=== PATIENT | male | born 1955 | race Caucasian/White ===

== ENCOUNTER 2017-02-04 14:16 | Inpatient (IN) ==
[2017-02-04 14:40] LABS: MANUAL DIFF NEEDED? NO
--- NOTE | 2017-02-04 14:47 | PROVIDER DOCUMENTATION ---
HPI-General Adult - General Chief Complaint: Weakness Stated Complaint: weakness, jaundiced Time Seen by Provider: 02/04/17 14:21 Source: patient Allergies/Adverse Reactions: Patient Allergies Allergy/AdvReac Type Severity Reaction Status Date / Time No Known Allergies Allergy Verified 07/31/16 06:55 Home Medications: Home Medication List Medication Instructions Recorded Confirmed Last Taken Type Folic Acid 1 mg PO DAILY #30 tablet 01/17/15 07/31/16 02/28/15 Rx Omeprazole [Prilosec] 40 mg PO ACB #30 capsule 01/17/15 07/31/16 02/28/15 Rx Atenolol 50 mg PO DAILY 02/12/15 07/31/16 02/28/15 History Furosemide [Lasix] 20 mg PO DAILY #30 tablet 02/19/15 07/31/16 02/28/15 Rx Spironolactone [Aldactone] 25 mg PO DAILY #60 tablet 02/19/15 07/31/16 02/28/15 Rx Rifaximin [Xifaxan] 550 mg PO BID #60 tablet 03/07/15 07/31/16 02/28/15 Rx Indomethacin [Indocin] 25 mg PO TID PRN #30 capsule 07/31/16 Unknown Rx - History of Present Illness -Gen Adult Nature of Presenting Problems: patient is a 61 y/o m that presents with weakness and jaundice skin. unsure when it began. patient is an everyday drinker but hasn't had any in two weeks. Denies fever/chills. reports not eating or drinking in awhile. Location of Pain/Injury: reports: generalized Quality of Pain: reports: other (weakness) Severity: reports: severe Onset/Duration: reports: unsure Timing: reports: still present, getting worse Context/Activities at Onset: reports: none Modifying Factors: improves with: nothing Associated Symptoms: reports: fatigue, loss of appetite, malaise, weakness. denies: chest pain, constipation, diarrhea, dizziness, fever/chills, genitourinary problems, nausea, shortness of breath, vomiting Similar Symptoms Previously?: No Recently seen or treated by another doctor?: No Review of Systems - Adult - REVIEW OF SYSTEMS - ADULT Constitutional: reports: aide. denies: chills, fever Eyes: denies: decreased vision, blurred vision, double vision Ears, Nose, Mouth & Throat: denies: ear pain, sinus problem, throat pain, throat swelling Cardiovascular: denies: chest pain, palpitations, syncope Respiratory: denies: cough, shortness of breath, wheezing Gastrointestinal: reports: poor appetite. denies: abdominal pain, diarrhea, nausea, vomiting Genitourinary: denies: dysuria, frequency Musculoskeletal: reports: muscle weakness. denies: back pain Integumentary: reports: no symptoms reported Neurological: reports: no symptoms reported Psychiatric: reports: no symptoms reported Endocrine: reports: no symptoms reported Hematologic/Lymphatic: reports: no symptoms reported Allergic/Immunologic: reports: no symptoms reported All Other Systems: Reviewed and Negative Past History - Adult - PAST MEDICAL HISTORY-ADULT Review of Records: reports: Old Records Reviewed, Nursing Assessment Review, Medications Reviewed Cardiovascular: reports: HTN, hyperlipidemia Respiratory: reports: cancer (lung) Gastrointestinal: reports: liver disease (cirrhosis) Genitourinary: reports: other (cirrhosis) - PRIOR SURGERIES/PROCEDURES Surgical/Procedure History: reports: appendectomy, other (left lung) - IMMUNIZATION STATUS Childhood Immunizations: See Nurse Assessment Flu Vaccine: See Nurse Assessment - SOCIAL HISTORY Smoking: non-smoker Alcohol Use Frequency: every day (not in two weeks) Living Situation: family Physical Exam-General - PHYSICAL EXAM-ADULT Initial Vital Signs Reviewed: Yes - CONSTITUTIONAL General Appearance: alert, severe distress, other (ill appearing) - EYES Eyes: PERRL/EOMI, scleral icterus. negative: conjuctival exudate - HEAD, EARS, NOSE, MOUTH & THROAT HENMT: normocephalic/atraumatic, other (dry mucus membranes). negative: angioedema - NECK Neck: full range of motion, supple - RESPIRATORY Respiratory: lungs clear, normal breath sounds, no respiratory distress, no accessory muscle use - CARDIOVASCULAR Cardiovascular: no gallop, no murmur - GASTROINTESTINAL (ABDOMEN) Abdominal Exam: distended, mass (epigastric region), hepatomegaly. negative: spleenomegaly, psoas, Rovsing's sign - MUSCULOSKELETAL Extremity: no pedal edema, no calf tenderness - SKIN Integumentary: jaundice. negative: cyanosis, pallor - NEUROLOGIC Neurologic: shell plater II-XII nml as tested, no motor/sensory deficits - PSYCHIATRIC Psych/Mental Status: normal mood/affect, oriented x 3 Progress - PLAN OF CARE/RESULTS Progress/Plan/Lab Results: Vital Signs - 8 hr 02/04/17 14:17 Temperature 97 F L Pulse Rate 56 L Respiratory Rate 26 H Blood Pressure 80/53 O2 Sat by Pulse Oximetry 99 Orders Category Date Time Status Saline Loc DIRECTED Care 02/04/17 14:23 Active NPO Diet 02/04/17 14:23 Active AMMONIA [CHEM] Stat Lab 02/04/17 14:28 Received AMYLASE [CHEM] Stat Lab 02/04/17 14:28 Received CBC WITH ELECTRONIC DIFF [HEME] Stat Lab 02/04/17 14:28 Results COMPREHENSIVE METABOLIC PANEL [CHEM] Stat Lab 02/04/17 14:28 Received LIPASE [CHEM] Stat Lab 02/04/17 14:[address] W/POSS RFLX CULT [URINALYSIS] Stat Lab 02/04/17 14:23 Uncollected Laboratory Tests 02/04/17 02/04/17 02/04/17 14:28 14:28 14:28 WBC 13.26 H RBC 2.81 L Hgb 9.1 L Hct 26.2 L MCV 93.2 MCH 32.4 H MCHC 34.7 RDW Std Deviation 19.8 H Plt Count 73 L MPV Not Reportable Immature Gran % (Auto) 1.9 H Neut % (Auto) 77.5 H Lymph % (Auto) 8.9 L Posey % (Auto) 10.9 H Eos % (Auto) 0.2 Baso % (Auto) 0.6 Immature Gran # (Auto) 0.25 H Neut # (Auto) 10.28 H Lymph # (Auto) 1.18 L Posey # (Auto) 1.44 H Eos # (Auto) 0.03 Baso # (Auto) 0.08 Sodium 136 Potassium 5.2 H Chloride 93 L Carbon Dioxide 11 L Anion Gap 32 BUN 217 H Creatinine 15.7 H* Estimated GFR/1.73 m2 3 BUN/Creatinine Ratio 14 Glucose 153 H Calculated Osmolality 348 Calcium 7.4 L Total Bilirubin 32.70 H AST 161 H ALT 54 H Alkaline Phosphatase 195 H Ammonia 47 Total Protein 6.1 L Albumin 2.4 L Globulin 4.0 Albumin/Globulin Ratio 1.0 Amylase 91 Lipase 244 H Result Diagrams: 02/04/17 14:28 02/04/17 14:28 - CONSULTS/PCP/HOSPITALIST Notification #1 *Consult/PCP/Hospitalist*: ( strategy planning consultant for hospitalist) Time Discussed: 15:33 Reason/Comments: will transfer to [facility] Consult Disposition: other Departure - Departure Date of Disposition Decision: 02/04/17 Time of Disposition Decision: 15:34 DIAGNOSIS: Decreased oral intake, Anemia, Hepatorenal failure Hypotension Qualifiers: Hypotension type: unspecified hypotension type Qualified Code(s): I95.9 - Hypotension, unspecified Disposition: ADMITTED INPATIENT 09 Certified Medical Emergency: Emergent Condition: Poor Referrals and Follow-Ups: None,PCP [Primary Care Provider] - - Critical Care Note This patient required my direct & personal management of CC.: Yes Total Time (mins): 35 Critical Care Statement: This patient required my direct personal management to treat or rule out processes, the absence of which, could potentiallly result in sudden, clinically significant life or limb threatening deterioration.
[2017-02-04 14:49] LABS: BASO% 0.6 % (0.0-0.8); EOS# 0.03 X1000 (0.0-0.7); EOS% 0.2 % (0.0-10.0); HEMATOCRIT 26.2 % (42.0-52.0); HEMOGLOBIN 9.1 g/dL (14.0-18.0); IMM GRAN# 0.25 X1000 (0.0-0.04); IMM GRAN% 1.9 % (0.0-0.5); LYMPH# 1.18 X1000 (1.2-3.4); LYMPH% 8.9 % (20.5-51.1); MCH 32.4 PG (27-31); MCHC 34.7 g/dL (33-37); MCV 93.2 FL (81-99); MONO# 1.44 X1000 (0.11-0.59); MONO% 10.9 % (1.7-9.3); NEUT% 77.5 % (42.2-75.2); PLT 73 X1000 (130-400); RBC 2.81 XMIL (4.7-6.1)
[2017-02-04 15:24] LABS: BE -14.6 mmoll (-3.0-3.0); BLOOD TYPE ARTERIAL; DRAW SITE R RADIAL; METHB 1.1 % (0.0-1.5); O2(CT) 12.9 mL/dL (15.0-23.0); PO2(98.6) 101 mmHg (60-100); SAMPLE BLOOD; THB 9.3 g/dL (11.5-17.4); pH(98.6) 7.33 (7.35-7.45)
[2017-02-04 15:27] LABS: ALBUMIN 2.4 g/dL (3.5-5.0); CALCIUM 7.4 mg/dL (8.8-10.2); POTASSIUM 5.2 mmol/L (3.5-5.1); TOTAL BILIRUBIN 32.7 mg/dL (0.20-1.00); TOTAL PROTEIN 6.1 g/dL (6.3-8.3)
[2017-02-04] MEDS ORDERED: NS 1,000 ML IV ONE (15:37)
[2017-02-04 15:40] LABS: INR 1.99 (0.86-1.15); PROTIME 22.7 Seconds (12.1-15.5)
[2017-02-04 15:41] LABS: PTT PL 55.8 Seconds (22.6-43.9)
[2017-02-04 16:11] LABS: ALLEN TEST YES; MODALITY ROOM AIR; PCO2(98.6) 18 mmHg (35-45)
--- NOTE | 2017-02-04 16:42 | Diag Imaging Result Doc PS360 ---
ABDOMEN/PELVIS W/O CONTRAST - 02/04/2017 INDICATION: r/o mass TECHNIQUE: A CT dose reduction protocol was used. COMPARISON: Abdomen ultrasound 01/07/2015 FINDINGS: There is cirrhosis and splenomegaly. There is trace ascites. Alvarado catheter in the urinary bladder. No mass. There is obesity with laxity of the abdominal muscular wall. No radiodense renal stones. No hydronephrosis or hydroureter. The lung bases are clear and the heart size is normal. There are several bilateral nondisplaced rib fractures that appear subacute with some new bone formation. No acute bony lesions. IMPRESSION: Cirrhosis with splenomegaly. Trace ascites. Healing bilateral rib fractures. Electronically signed by Jimmy Kuo 02/04/2017 4:39 PM
[2017-02-04] MEDS ORDERED: ZOFRAN IV PRN (17:49)
[2017-02-04] MEDS ORDERED: VITAMIN K 10 MG in NS 50 ML IV ONE (17:56)
[2017-02-04 18:20] LABS: COLOR ORANGE; URINE CAST NONE SEEN /LPF; URINE CRYSTAL NONE SEEN /HPF; URINE EPITHELIAL CELLS >10 /HPF (<10); URINE SOURCE CATH; URINE WBC <10 /HPF (<10)
[2017-02-04] MEDS: SODIUM CHLORIDE 0.9% INJ SCH (18:20)
[2017-02-04] MEDS: PROTONIX IV SCH (18:20)
[2017-02-04] MEDS: NS 1,000 ML IV SCH (18:20)
--- NOTE | 2017-02-04 18:20 | HISTORY AND PHYSICAL ---
PRIMARY CARE PHYSICIAN: Dr. Nico Rodriguez. CHIEF COMPLAINT: Weakness and jaundice. HISTORY OF PRESENTING ILLNESS: This is a 61-year-old male who presented to [facility] ER with complaints of weakness and jaundiced skin. States that he is unsure of when it began. States that he is a daily alcohol drinker but has not had any alcohol in about 2 weeks. Reports that he has not been eating or drinking for the past several days. Workup in the ER showed a blood pressure on arrival of 80/53. Laboratory data showed a white blood cell count of 13.26. His ABG showed a pH of 7.33, pCO2 of 18, pCO2 of 101, bicarb 13.6, this is on room air. His potassium was 5.2, BUN of 217, creatinine 15.7, total bilirubin of 32.7, AST of 161, ALT of 54, alkaline phosphatase of 195, ammonia level was 47, amylase of 91, lipase 244, plasma lactate was 1.4. So he will be admitted to the intensive care unit at [facility]. It is noted that a CT of the abdomen has been obtained but we do not have those results at this time. PAST MEDICAL HISTORY: Hypertension, hyperlipidemia, lung cancer, cirrhosis, diabetes type 2, chronic ETOH abuse. 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 FAMILY HISTORY: Noncontributory. SOCIAL HISTORY: Currently lives with family. Denies any tobacco use stating he quit 17 years ago. Alcohol use, he was a daily drinker of alcohol but has quit in the past 2 weeks and denied any illicit drug use. ALLERGIES: He has no known drug allergies. HOME MEDICATIONS: We will verify his current list of medications and restart those if appropriate. LABORATORY DATA: Showed a white blood cell count of 13.26, hemoglobin 9.1, hematocrit 26.2, platelets 73,000. CT and INR of 22.7 and 1.99. ABG with a pH of 7.33, pCO2 of 18, PO2 101, bicarb 13.6 and that was on room air. Sodium 136, potassium 5.2, chloride 93, CO2 11, BUN of 217 with a creatinine of 15.7, blood sugar 153, total bilirubin 32.70, AST 161, ALT 54, alkaline phosphatase 195, ammonia 47, amylase 91, lipase 244, plasma lactate of 1.4. CT of the abdomen and pelvis has been obtained but those results are pending. REVIEW OF SYSTEMS: He denied any fever, chills, blurred vision, dizziness. He has been positive for generalized weakness, yellowing of his skin, denies any nausea vomiting, constipation, diarrhea, or burning or hurting with urination. PHYSICAL EXAMINATION: VITAL SIGNS: On arrival he had a temperature of 97 degrees, pulse 56, respirations 26, blood pressure 80/53, saturating 99% on room air. GENERAL: This is a 61-year-old male who is extremely jaundiced from head to toe. Otherwise he answers most questions appropriately. There is some mild confusion as he thought he was already at [facility] but is at [place]. HEENT: Otherwise is normocephalic, atraumatic. Pupils are equal, round, reactive to light. Of course the sclerae is jaundiced. Extraocular movements are intact. Oropharynx and nares are clear. NECK: Supple. LUNGS: Clear to auscultation bilaterally with equal lung expansion and chest wall movement. HEART: With regular rate and rhythm. No murmurs, rubs, or gallops. ABDOMEN: Distended. Bowel sounds are present x4 quadrants. EXTREMITIES: No clubbing, cyanosis, or edema. NEUROLOGIC: The cranial nerves 2-12 appear grossly intact. ASSESSMENT: 1. Hypotension. 2. Acute renal failure. 3. Liver failure. 4. Tobacco abuse. 5. Ethanol abuse. 6. Diabetes type 2. PLAN: He will be admitted to the intensive care unit at [facility], held NPO, placed on normal saline at 150 mL an hour, Zofran 4 mg IV q.4 hours p.r.n. We will consult GI. We will consult Nephrology, place on telemetry, verify home medications as previously identified but they will be held at this time anyway because he is NPO and recheck a CBC, CMP in the a.m. Dictated by MARGARET Bautista for Navjot Sutton MD cc: MD Navjot Fletcher MD
[2017-02-04 18:21] LABS: BILIRUBIN URINE 3+ (NEGATIVE); BLOOD URINE 4+ (NEGATIVE); CLARITY HAZY (CLEAR); LEUKOCYTES URINE TRACE (NEGATIVE); NITRITE URINE POSITIVE (NEGATIVE); PROTEIN URINE 1+(30 mg/dL) mg/dL (NEGATIVE); URINE CULTURE PL NEEDED? YES; UROBILINOGEN URINE 3+(8 mg/dL)
--- NOTE | 2017-02-04 19:13 | Diag Imaging Result Doc PS360 ---
US ABDOMEN-COMPLETE - 02/04/2017 INDICATION: Cirrhosis COMPARISON: CT from earlier 02/04/2017 FINDINGS: There is severe diffuse fatty change of the liver. There is splenomegaly. The spleen measures 18.4 x 17.4 x 6.2 cm. The liver is somewhat enlarged. There is a small amount of ascites. The pancreas is obscured. Both kidneys are normal. The gallbladder is grossly normal. Common bile duct measures 5 mm. Main portal vein is obscured. Aorta and IVC are patent. IMPRESSION: 1. Severe fatty liver. 2. Hepatosplenomegaly. 3. Small amount of ascites. Electronically signed by Jimmy Kuo 02/04/2017 7:10 PM
[2017-02-04] MEDS: LEVOPHED 8 MG in D5 1/2 NS 250 ML IV SCH (19:32)
--- NOTE | 2017-02-04 20:34 | PROGRESS NOTE ---
DATE: 02/04/2017 SUBJECTIVE: Patient transferred from [place] here to [facility] his doctor is Dr. Nico Rodriguez, he presented to [place] with weakness and jaundice, 61-year-old male presented to [facility] ER complained of weakness and jaundiced skin, states that he unsure of when it began, states that he daily alcohol drinker and not had any alcohol in about 2 weeks, reports that he has not been eating, drinking for last several days. Workup in the ER showed blood pressure of 80/53. Lab data showed white blood cell count 13,260, ABGs show pH is 7.33, pCO2 18, PO2 of 101, bicarb was 13.6 on room air. Potassium is 5.2, BUN 217, creatinine 15.7, total bilirubin of 32, AST 161, ALT 54, alkaline phosphatase 195, ammonia level is 47, amylase 91, lipase 244, plasma lactate 1.4. He was moved to intensive care because blood pressure continued to drop and wanted more assistance and moved over here to [facility] ICU. PAST MEDICAL HISTORY: Of hypertension, hyperlipidemia, lung cancer, cirrhosis, diabetes mellitus type 2 chronic ethanol abuse. 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 FAMILY HISTORY: Was noncontributory. EXAM: General: He is awake and alert, he knows he is in the hospital. Vital Signs: Over here temperature 98.5 degrees, pulse 58, respirations 20, blood pressure 97/52. HEENT: Pupils are equal, round, CVP less than 6 cm. Height 6 feet 2 inches. Lungs: Clear in all lung jaime. Cardiovascular: Regular rhythm, rate without murmur, S3. Abdomen: Soft. Skin: Warm and dry. LAB: White blood cell count 13,260, hematocrit 26, platelet count 73,000. Sodium 136, potassium 5.2, chloride 93, BUN 217, creatinine 15.7, calcium was 7.4, total bilirubin 32.7, AST 161, ALT 54, lipase was 244, amylase 91, pro time 22, PTT 55. Urinalysis he had 4+ blood, 3+ urobilinogen, 3+ bilirubin. Blood gases pH was 7.33, pCO2 18, PO2 was 101, O2 saturation 97%. Abdominal and pelvic CT showed cirrhosis and splenomegaly, trace ascites, healing bilateral rib fractures. ASSESSMENT/PLAN: Appears he has respiratory alkalosis and also appears that his bicarb is 11 with anion gap of 32 so has metabolic acidosis which is the predominant acid-based issue in him. 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 Glaser and also pulmonary and GI to assist, he has already been on put on Trental or pentoxifylline 400 mg t.i.d., Protonix 40 mg IV q.12 and we have only norepinephrine 8 mg I believe is 8 mg/hour. He is requesting food, will give him a renal soft GI diet. Electrolytes fairly stable right now, note that his potassium is 5.2, will follow these closely. Concerned about his hepatic dysfunction. His pro time is 22, his albumin is down to 2.4 which suggests hepatic functional intrinsic dysfunction, transaminases are mildly elevated. cc: Fortunato Martino MD
[2017-02-04 20:52] LABS: ALBUMIN 2.4 g/dL (3.5-5.0); CALCIUM 7.2 mg/dL (8.8-10.2); POTASSIUM 5.6 mmol/L (3.5-5.1)
--- NOTE | 2017-02-04 22:17 | CONSULTATION ---
DATE OF CONSULTATION: 02/04/2017 REASON FOR CONSULTATION: Acute kidney injury. HISTORY OF PRESENT ILLNESS: Mr. Bucio is a 61-year-old white male with a history of daily alcohol use. He has known hepatic cirrhosis and has been experiencing progressively worsening jaundice, abdominal distention and weakness. He has continued to drink daily until the last couple weeks. His intake has been poor. He has had no vomiting. He has noticed a decreased urine output. Because of these worsening symptoms, he sought attention in the emergency room where he had evidence of profound metabolic derangement with a bilirubin of 33 and creatinine of 16 so he was admitted to the hospital. He also was markedly jaundiced and hypotensive on arrival to the emergency room with relative bradycardia. Despite this, he is awake and alert and oriented. PAST MEDICAL HISTORY: As above. He also has a history of lung cancer, hyperlipidemia, hypertension, diabetes. HOME MEDICATIONS: Omeprazole, folate, atenolol, furosemide, spironolactone, rifaximin, indomethacin. ALLERGIES: None. SOCIAL HISTORY: As above. Lives alone. FAMILY HISTORY: Otherwise noncontributory. REVIEW OF SYSTEMS: Otherwise noncontributory. He really did not participate with the review of systems. PHYSICAL EXAMINATION: Vital Signs: Blood pressure 97/52, heart rate 58, respirations 21, afebrile. Generally: He is a chronically ill-appearing man but in no acute distress. Skin: Markedly jaundiced and dry with few ecchymoses. HEENT: Conjunctivae are icteric. Pupils are equal. Oropharynx is dry. Neck: Supple. Neck veins are not visible. Trachea is midline. Heart: Regular without rubs or murmurs. Lungs: Have equal breath sounds. No crackles or wheezes. Abdomen: Markedly distended, soft, nontender. Bowel sounds are present. Extremities: Have no edema, clubbing, or cyanosis. Neurologic Exam: Grossly nonfocal. LABORATORY DATA: Sodium 136, potassium 5.2, chloride 93, bicarbonate 11, BUN 217, creatinine 15.7, bilirubin 32.7, AST 161, ALT 54, alkaline phosphatase 195, albumin 2.4. IMPRESSION: 1. Acute kidney injury: I have no recent historical data. Last creatinine in our system was 1.5 from 03/03/2015. He does state that he has been aware of kidney disease recently but he is not able to tell me who related this to him. Multifactorial but certainly he is at risk for hepatorenal syndrome. He has IV fluids and norepinephrine ordered. He has had abdominal imaging and there is no evidence of obstruction. We will continue this course of therapy. When he appears more volume replete then we may need to add albumin as well. Very poor prognosis. 2. Metabolic acidosis: Increased anion gap. Presumably related to his renal dysfunction. Acetone is negative. Lactate is normal. We will check measured serum osmolality. 3. Electrolytes: Mild hyperkalemia. Observe with volume resuscitation. 4. Anemia: Hemoglobin is 9.1 but he is volume contracted. Will follow this as we rehydrate. cc: Vidal Glaser MD
[2017-02-05] MEDS: NS 1,000 ML IV SCH ×2 (00:02→06:14)
[2017-02-05] MEDS: PROTONIX IV SCH ×2 (05:21→17:20)
[2017-02-05 05:56] LABS: MANUAL DIFF NEEDED? NO
[2017-02-05 05:58] LABS: BASO% 0.3 % (0.0-0.8); EOS# 0.02 X1000 (0.0-0.7); EOS% 0.1 % (0.0-10.0); HEMATOCRIT 25.8 % (42.0-52.0); HEMOGLOBIN 8.7 g/dL (14.0-18.0); IMM GRAN# 0.39 X1000 (0.0-0.04); IMM GRAN% 2.4 % (0.0-0.5); LYMPH# 1.27 X1000 (1.2-3.4); LYMPH% 7.8 % (20.5-51.1); MCHC 33.7 g/dL (33-37); MCV 94.9 FL (81-99); MONO# 1.52 X1000 (0.11-0.59); MONO% 9.4 % (1.7-9.3); PLT 76 X1000 (130-400); RBC 2.72 XMIL (4.7-6.1)
[2017-02-05] MEDS: CENTRUM SILVER PO SCH ×2 (06:06→09:53)
[2017-02-05] MEDS: FOLIC ACID PO SCH ×2 (06:06→09:54)
[2017-02-05] MEDS: VITAMIN B-1 PO SCH ×2 (06:07→09:54)
[2017-02-05 06:35] LABS: ALBUMIN 2.3 g/dL (3.5-5.0); POTASSIUM 4.9 mmol/L (3.5-5.1); TOTAL BILIRUBIN 29.94 mg/dL (0.20-1.00); TOTAL PROTEIN 5.8 g/dL (6.3-8.3)
[2017-02-05 06:46] LABS: CALCIUM 6.5 mg/dL (8.8-10.2)
[2017-02-05 08:57] LABS: URINE SOURCE CATH
--- NOTE | 2017-02-05 08:57 | CONSULTATION ---
DATE OF CONSULTATION: 02/04/2017 ATTENDING PHYSICIAN: Fortunato Martino MD. PRIMARY CARE DOCTOR: None. PRIMARY PLUNGER MACHINE OPERATOR: Dr. Pacheco. REASON FOR CONSULTATION: Liver failure.. HISTORY OF PRESENT ILLNESS: Mr. Bucio is a 61-year-old male who presented to the [facility] for complaints of weakness and jaundiced skin. He is unsure of when his symptoms really began. He is a daily alcohol drinker. Has been doing that for many decades. He quit drinking 2 weeks ago. He also has not been eating or drinking for the last few days. He complained of weakness at work and was noticed to be jaundiced. His colleagues made him go to the ER. In the ER in [facility], he was noted to be severely jaundiced with a bilirubin of more than 30 , creatinine of more than 15, with metabolic acidosis and with respiratory alkalosis. Was transferred to [facility] ICU for further workup. According to the patient, he denies any prior history of liver disease, although in the records, he has been noted to be diagnosed with cirrhosis by Dr. Pacheco who had performed an EGD on him 2 years ago when he was discovered to have a duodenal ulcer. He denies any vomiting or vomiting blood. He denies any blood in the stools. He does complain of nausea and decreased appetite. He also complains of abdominal distention attributed to ascites. He denies any use of any herbal medications. He denies any prior history of any hepatitis. PAST MEDICAL HISTORY: 1. Hypertension. 2. Hyperlipidemia. 3. 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 4. Alcoholic cirrhosis. 5. Type 2 diabetes. 6. Chronic alcohol abuse, quit 2 weeks ago. 7. Esophageal varices. 8. Duodenal ulcer. 9. Reflux disease. PAST SURGICAL HISTORY: 1. Appendectomy. 2. Left lung carcinoid tumor removed with thoracotomy, EGD by Dr. Pacheco. FAMILY HISTORY: Noncontributory. SOCIAL HISTORY: He lives alone. His closest relative is his son who lives in [place]. He denies any tobacco abuse. He quit 17 years ago. He is a daily drinker and drank bourbon until about 2 weeks ago. He denied any illicit drug abuse. ALLERGIES: No known drug allergies. MEDICATIONS AT HOME: Not compiled yet. MEDICATIONS IN THE HOSPITAL: Include: 1. IV fluids with normal saline 150 mL per hour. 2. Vitamin K IV x1. 3. Protonix IV b.i.d. 4. Norepinephrine IV drip per protocol. 5. Multivitamin once daily. 6. Thiamine 100 mg once daily. 7. Folic acid 1 mg once daily. 8. Pentoxifylline 4 mg p.o. t.i.d. DIET: He is currently on a GI soft diet. REVIEW OF SYSTEMS: Review of systems was limited as the patient felt very tired and fatigued but he denied any fevers or chills. He denied any chest pain. He denied any current shortness of breath. He denied any vomiting blood or passing blood in the stools. He denies any blood in the urine. PHYSICAL EXAMINATION: Vital Signs: Temperature 97.1 degrees, pulse rate of 56 , respiratory rate 20, blood pressure of 89/55, saturating 99% on room air. Body weight of 240 pounds. BMI of 30.8 kg/m2. General Appearance: Moderately built, lying in bed, in no acute distress. HEENT: Icteric sclera. Pale conjunctivae. Pupils equal, reactive to light and accommodation. Neck: Supple. Chest: Decreased. Cardiac: Regular rate and rhythm. No murmur. Abdomen: Distended. Positive ascites. No rebound or guarding. Bowel sounds are present. Extremities: No cyanosis, clubbing. Lack of muscle mass, lower extremities. Neurologic: He was awake and oriented to place, person, and time. LABS: White count of 13.26, hemoglobin and hematocrit are 9.1 and 26.2, MCV of 93.2, platelet count of 73,000, neutrophils 77.5. INR of 1.99, PT of 22.7, PTT of 55.8. ABG showing pCO2 of 18, PO2 101, pH 7.3, lactate of 1.2, FiO2 at room air. Sodium of 135, potassium 5.6 , chloride of 93, bicarb of 10, anion gap of 32, BUN of 215, creatinine of 14.3, glucose of 151, and calcium 7.2. Phosphorus 9.8. Total bilirubin 32.7, AST 161, ALT 54, alkaline phosphatase is 195, total protein 6, albumin of 2.4, ammonia 47, amylase of 91, lipase of 244. Urinalysis showing hazy appearance, 1+ protein, positive nitrite, 3+ bilirubin, 10-20 white cells, and positive epithelial cells, trace glucose. Salicylate is less than 3. Tylenol 7.5. Acetone level was negative. CT scan of the abdomen and pelvis done on 02/04/2017 showed cirrhosis, splenomegaly, trace ascites, healing bilateral rib fractures. Ultrasound of the abdomen showed severe hepatosplenomegaly, spleen size measuring 18.4 x 17.4 x 6.2 cm. Small amount of ascites. The gallbladder is grossly normal. CBD measuring 5 mm. IMPRESSION AND PLAN: 1. Severe jaundice and liver failure secondary to alcoholic liver cirrhosis complicated with portal hypertension, splenomegaly, thrombocytopenia, coagulopathy, hypoalbuminemia, anemia, jaundice, and possibly hepatorenal syndrome. 2. Acute renal failure. 3. Dehydration. 4. Hypotension. 5. Alcohol abuse. 6. Type 2 diabetes. RECOMMENDATIONS: 1. We will watch the patient closely for delirium tremens. We will start him on thiamine, folic acid, multivitamin, iron C. Panculture and may start Prednisolone if infectious work up is negative. 2. We will avoid any hepatotoxic drugs. 3. We will keep NPO, agree with hydration with normal saline. Nephrology consult has been called. The patient may need hemodialysis. We will give him a dose of vitamin K. 4. We will type and cross, and transfuse to keep hematocrit more than 23%. 5. If the patient is unable to meet up with his daily calories, then we will start him on D5 normal saline and Clinimix. 6. We will follow along and check daily labs. Dr. Pacheco will resume care on Monday. The above plan of care was discussed with the patient and the RN at bedside. Thank you for allowing us the opportunity to see the patient. cc: MD Nico Pena MD Reginald D. Gladish, MD Manish Arora, MD MTDD
[2017-02-05 09:23] LABS: UR PROT RANDOM 184.3 mg/dL
[2017-02-05] MEDS: SODIUM BICARBONATE 8.4% 150 MEQ in D5W 1,000 ML IV SCH (09:33)
[2017-02-05 09:50] LABS: BILIRUBIN URINE LARGE (NEGATIVE); BLOOD URINE LARGE (NEGATIVE); COLOR YELLOW; GLUCOSE URINE TRACE mg/dL (NEGATIVE); LEUKOCYTES URINE LARGE (NEGATIVE); NITRITE URINE NEGATIVE (NEGATIVE); PH URINE 5.5; PROTEIN URINE 100 mg/dL (NEGATIVE); SP GRAVITY URINE 1.015; TURBIDITY URINE HAZY (CLEAR); UR EPITHELIAL CELLS <10 /HPF (<10); URINE BACTERIA NEGATIVE /HPF; URINE CASTS NONE SEEN; URINE MICRO REVIEW NEEDED? YES; URINE RBC TNTC /HPF (<10); UROBILINOGEN URINE 3 mg/dL (NORMAL)
[2017-02-05] MEDS: TRENTAL PO SCH ×3 (09:53→17:18)
--- NOTE | 2017-02-05 11:41 | PROGRESS NOTE ---
DATE: 02/05/2017 SUBJECTIVE: His belly hurts all over. Bright orange jaundice. Breathing comfortably. He is complaining of nausea. PHYSICAL EXAMINATION: Vital Signs: Temperature 96.7 degrees, pulse 55, respirations 22, blood pressure 96/61. CVP less than 6 cm. Lungs: Clear in all lung jaime. Abdomen: Some marked ascites with shifting fluid level. Extremities: A little pedal edema in the lower extremities. Is and Os: Urine output was poor, output of about 22 mL. LAB: White count 16,200, hematocrit 25, platelet count 76,000. Chemistry: Sodium 138, potassium 4.9, chloride 100, BUN was 197, creatinine 13.2. ASSESSMENT AND PLAN: 1. Severe jaundice, severe liver failure secondary to alcoholic liver cirrhosis complicated by portal hypertension, splenomegaly, thrombocytopenia, coagulopathy, hypoalbuminemia, anemia, jaundice, markedly elevated bilirubin, ascites, and appears to have hepatorenal syndrome. 2. Acute renal syndrome, I suspect hepatorenal. We will continue norepinephrine, try and get his mean arterial pressure up. Dr. Glaser is following. 3. Dehydration, intravascular volume depletion with hypotension. Aware. 4. Alcohol abuse. Suspect alcohol withdrawal, although he has been off alcohol by his report for a couple weeks. 5. Diabetes mellitus type 2. Note his lab, blood sugars 153, 151, 153. Bilirubin is 29, AST from 161 to 142, ALT 54 to 51, alkaline phosphatase 195 to 174, albumin was 2.3. cc: Fortunato Martino MD
[2017-02-05] MEDS: LEVOPHED 8 MG in D5 1/2 NS 250 ML IV SCH (14:14)
[2017-02-05 15:13] LABS: INR 1.54; PROTIME 16.6 Seconds (9.2-11.7)
[2017-02-05] MEDS: LEVAQUIN 500 MG/D5W 500 MG/100 ML IVPB IV SCH (15:16)
[2017-02-05] MEDS: ALBUMIN 25% IV SCH (15:17)
--- NOTE | 2017-02-05 16:59 | Diag Imaging Result Doc PS360 ---
CHEST-PORTABLE - 02/05/2017 INDICATION: eval for PNA/ has Leukocytosis TECHNIQUE: COMPARISON: 07/31/2016 FINDINGS: Stable cardiomegaly and pulmonary vascular congestion. No focal infiltrates. No pneumothorax or large effusion. IMPRESSION: Cardiomegaly and pulmonary vascular congestion. No change from prior. Electronically signed by Jimmy Kuo 02/05/2017 4:57 PM
[2017-02-05] MEDS ORDERED: VITAMIN K 10 MG in NS 50 ML IV ONE (17:00)
[2017-02-05] MEDS: SODIUM CHLORIDE 0.9% INJ SCH (17:20)
[2017-02-05] MEDS: SANDOSTATIN 500 MICROGM in D5W 100 ML IV SCH (18:09)
[2017-02-05] MEDS ORDERED: MORPHINE IV ONE (21:03)
[2017-02-05] MEDS: ICAR-C PO SCH (21:42)
[2017-02-05] MEDS ORDERED: HALDOL IM PRN (23:29)
[2017-02-05] MEDS: DILAUDID IV PRN (23:40)
[2017-02-06] MEDS: SODIUM BICARBONATE 8.4% 150 MEQ in D5W 1,000 ML IV SCH ×3 (01:30→22:49)
[2017-02-06] MEDS: LEVOPHED 8 MG in D5 1/2 NS 250 ML IV SCH ×3 (02:26→20:16)
--- NOTE | 2017-02-06 03:35 | PROGRESS NOTE ---
DATE: 02/05/2017 PRIMARY CARDROOM MANAGER: Dr. Pacheco. SUBJECTIVE: Patient is resting in bed. He is confused and was not able to answer any questions. I called his son, Lawrence, in [place]. We discussed his current clinical status and we discussed his prognosis with the patient's family. The patient has abdominal distention. He has ascites. The patient also has leukocytosis. We are doing a panculture. We will get a chest x-ray. We will try to get a paracentesis to evaluate for spontaneous bacterial peritonitis. No nausea or vomiting reported. No fevers reported. No vomiting blood or passing blood in the stools reported. No fever, rigors, chills reported. No nausea or vomiting reported. He was reported to have one dark liquid stool. His Hemoccult was positive. PHYSICAL EXAMINATION: Vital Signs: Temperature is 96.8, pulse rate of 55, respiratory rate of 23, blood pressure 91/83, saturating 100% on room air. Body weight of 217 pounds 9.6 ounces. BMI of 28.7 kg/m2. General Appearance: Moderate built, moderately nourished, lying in bed, currently sleepy and slightly confused. HEENT: Icteric sclerae. Pale conjunctivae. Neck: Supple. Abdomen: Mild distention noted. Positive ascites. No guarding. No rebound. Bowel sounds are present. Extremities: No cyanosis, clubbing. Skin: Icterus seen throughout the entire skin. Neurologic: He opens his eyes to commands but was unable to answer any questions today. LABS: His chest x-ray was done today which showed cardiomegaly with pulmonary venous congestion. No change from prior. No infiltrate. No pneumothorax. Blood cultures have been drawn and are currently pending. Urine culture showed no growth, stool occult blood is positive. Hemoglobin and hematocrit are 8.7 and 25.8, white count of 16.2, platelet count of 76,000, MCV of 94.9. INR 1.54, PT of 16.6. Sodium of 130, potassium 4.9, chloride of 100, bicarb 9, anion gap of 29, creatinine of 13.2, BUN of 197, total glucose of 153, calcium 6.5. Total bilirubin is 29.94, AST 142, ALT 51, alkaline phosphatase 174, total protein 5.8, albumin of 2.3, ammonia is 68. Urinalysis showed 10-20 white cells and RBCs. Ultrasound of the abdomen was done which showed severe fatty liver, hepatosplenomegaly, small amount of ascites. IMPRESSION/PLAN: 1. Liver failure secondary to alcoholic liver cirrhosis. 2. Renal failure, combination of dehydration, decreased oral intake, and possibly regional failure versus hepatorenal syndrome. 3. Ascites. 4. Jaundice. 5. Thrombocytopenia. 6. Coagulopathy. 7. Gastrointestinal bleeding. 8. Anemia. 9. Severe metabolic acidosis and compensated respiratory alkalosis. RECOMMENDATIONS: 1. We will do panculture. 2. We will obtain paracentesis consent to eval for SBP and it will be done tomorrow. 3. We will give him vitamin K another dose to help correct his INR. 4. We will keep an eye on his blood counts, type and cross, transfuse to keep hematocrit 25%. 5. We will start him on octreotide drip and he will continue on Protonix b.i.d. 6. We will start him on albumin 25 g IV once daily for 5 days. 7. He will continue on bicarb drip per the nephrology team. We will keep him on folic acid, thiamine, multivitamin as before. 8. He will continue on pentoxifylline 400 t.i.d. 9. If infectious disease workup is negative, then we may start him on prednisolone 40 mg every day for 28 days. 10. I discussed the above plan of care with Dr. Fortunato Martino and the nursing staff, and also with the patient's son by phone. Dr. Pacheco will resume the care him tomorrow. Also spoke with the patient's sister and mother at bedside. All questions were answered. cc: MD Fortunato Yusuf MD Reginald D. Gladish, MD MTDD
[2017-02-06] MEDS: PROTONIX IV SCH ×2 (05:19→17:07)
[2017-02-06 05:29] LABS: HEMATOCRIT 25.4 % (42.0-52.0); HEMOGLOBIN 8.8 g/dL (14.0-18.0); MCH 33.2 PG (27-31); MCHC 34.6 g/dL (33-37); MCV 95.8 FL (81-99); PLT 100 X1000 (130-400); RBC 2.65 XMIL (4.7-6.1)
[2017-02-06] MEDS: ALBUMIN 25% IV SCH (08:19)
[2017-02-06] MEDS: FOLIC ACID PO SCH (08:28)
[2017-02-06] MEDS: CENTRUM SILVER PO SCH (08:28)
[2017-02-06] MEDS: VITAMIN B-1 PO SCH (08:29)
[2017-02-06] MEDS: TRENTAL PO SCH ×3 (08:29→16:09)
[2017-02-06] MEDS: ICAR-C PO SCH ×2 (08:29→21:16)
[2017-02-06 09:35] LABS: POTASSIUM 5.1 mmol/L (3.5-5.1); TOTAL PROTEIN 5.9 g/dL (6.3-8.3)
[2017-02-06 09:36] LABS: TOTAL BILIRUBIN 32.34 mg/dL (0.20-1.00)
[2017-02-06 09:39] LABS: CALCIUM 6.4 mg/dL (8.8-10.2)
--- NOTE | 2017-02-06 09:40 | PROGRESS NOTE ---
DATE: 02/06/2017 SUBJECTIVE: He is more somnolent today. He really did not interact at all. OBJECTIVE: Vital Signs: Blood pressure 85/48, heart rate 52, respirations 21, afebrile. Generally: He is in no acute distress. Mental status as above. Skin: Jaundiced and dry with multiple ecchymoses. HEENT: Conjunctivae are icteric. Pupils are equal. Neck: Neck veins are not distended. Trachea is midline. Heart: Regular without gallops or murmurs. Lungs: Have equal breath sounds. Sonorous. No crackles. Abdomen: Distended and soft. Bowel sounds are present. Extremities: Have no edema, clubbing, or cyanosis. Laboratory Data: Pending this morning. IMPRESSION: Acute kidney injury in the context of chronic and acute hepatic failure. His urine output is low and his FENa is low but not strikingly so as would be consistent with hepatorenal syndrome. His labs from today are pending. Urine output remains very low despite 5 L of volume resuscitation since admission to the ICU. He is on a bicarbonate drip which was initiated yesterday. Continue norepinephrine. He is still receiving IV albumin. His prognosis is poor. His likelihood of improving with dialysis is low. As such, without any new mitigating information, my recommendation would be to withhold dialysis. I appreciate any input from the team. cc: Vidal Glaser MD
--- NOTE | 2017-02-06 10:16 | PROGRESS NOTE ---
DATE: 02/06/2017 SUBJECTIVE: Mr. Bucio is less responsive, more lethargic. OBJECTIVE: Vital signs: Temp 97.6 degrees, pulse 52, respirations 20, blood pressure 85/48. Lungs: Clear anterolateral. Cardiovascular: Regular rhythm and rate. Abdomen: Distended. Some ascites. Intake and output: Urine output was 5 L. LABS: White blood cell count 21,380, hematocrit 25, platelet count 100,000. Sodium 138, potassium 4.9, chloride 100, BUN 127, creatinine 13.2, phosphorus 6.5, total bilirubin 29, AST 142, ALT 51, alkaline phosphatase 174, albumin 2.3. Protime 16.6, come down from 22.7. ASSESSMENT AND PLAN: 1. Liver failure secondary alcoholic cirrhosis. Large amount of ascites complicated by hepatorenal syndrome. Renal failure may be a combination of dehydration, decreased oral intake. 2. Paracentesis today. Possible infection with elevated white count. Did not give prednisone for that reason. 3. Jaundice, elevated bilirubin and transaminases. 4. Thrombocytopenia. 5. Coagulopathy, intrinsic dysfunction of the liver. 6. Gastrointestinal bleeding. On proton pump inhibitor. 7. Anemia. 8. Severe metabolic acidosis with compensatory respiratory alkalosis. 9. Chest x-ray: Cardiomegaly, pulmonary vascular congestion. 10. Review of orders. I do not know that I see any change at this point. We gave him some vitamin K 10 mg yesterday in preparation for paracentesis today, thiamine 100 mg p.o. daily, pentoxifylline 400 mg t.i.d., Protonix 40 mg IV q.12. Octreotide is running at I think 500 mcg every hour, Centrum Silver 1 a day, norepinephrine drip trying to keep mean arterial pressure above 60, Levaquin 500 mg IV q.24 hours, Icar C1 b.i.d., Dilaudid as needed for pain. 0.5 mg, folic acid 1 mg a day and D5 with bicarbonate drip 150 mEq at 100 mL an hour. cc: Fortunato Martino MD
--- NOTE | 2017-02-06 13:08 | Diag Imaging Result Doc PS360 ---
EXAM: US PARACENTESIS HISTORY: liver failure TECHNIQUE: Transabdominal COMMENT: The consent was previously obtained from the family. There is a small pocket of fluid inferiorly to the right over the lower abdomen. This was localized with ultrasonography and subsequent to sterile preparation the skin and administration 1% lidocaine to the skin and deeper soft tissues the collection was punctured with a 20-gauge needle. Approximately 40 mL of fairly clear yellowish fluid was aspirated and sent to the laboratory. IMPRESSION: Successful ultrasound-guided paracentesis. Electronically signed by Talib Villalba 02/06/2017 1:06 PM
[2017-02-06] MEDS: LEVAQUIN 500 MG/D5W 500 MG/100 ML IVPB IV SCH (13:50)
[2017-02-06] MEDS: SANDOSTATIN 500 MICROGM in D5W 100 ML IV SCH (13:50)
[2017-02-06 13:52] LABS: TOTAL PROT BODY FLUID 0.5 g/dL
[2017-02-06] MEDS: DILAUDID IV PRN ×2 (16:20→21:34)
[2017-02-06 16:31] LABS: DIFF NEEDED? YES; WBC BF 93 /cumm
[2017-02-06 16:32] LABS: MONOS 75 %; POLYS 25 %
[2017-02-06] MEDS: SODIUM CHLORIDE 0.9% INJ SCH (17:07)
--- NOTE | 2017-02-06 23:50 | PROGRESS NOTE ---
DATE: 02/06/2017 PRIMARY MOTORBOAT MECHANIC: Dr. Jonas Pacheco M.D. PRIMARY INSTRUMENT LENS GRINDER: Dr. Vidal Glaser M.D. SUBJECTIVE: The patient was seen today earlier on rounds. He remains resting in bed and was unable to answer any questions. The patient remains on pressors, and has been relatively stable over the day. He underwent a paracentesis today. No nausea or vomiting has been reported. No fevers have but reported. No blood in the stool or emesis has been reported. He had a dark stool on 02/05/2017 that was guaiac positive. He has had no bowel movement today thus far today. PHYSICAL EXAMINATION: General: He is somnolent, and did not respond to questioning. Vital Signs: His blood pressure is 88/54, pulse 55, respirations 15, temperature of 97.6 degrees. HEENT: Remarkable for jaundice, but otherwise unremarkable. Pulmonary: Lungs are clear to auscultation anteriorly. Cardiovascular: He has a regular rate and rhythm, with no gallops or rubs. Abdominal: Reveals normoactive bowel sounds. The abdomen is distended, with obvious ascites. Extremities: Bilaterally are negative for cyanosis, clubbing, or edema. OBJECTIVE DATA: Hemoglobin of 8.8, with hematocrit 25.4, and white count of 21.38. His platelet count is 100,000. Sodium is 137, potassium 5.1, chloride 93, CO2 10, BUN 212, creatinine 14.3, with a glucose of 189. His calcium is 6.4, total bilirubin 32.4, AST is 161, ALT 52, alkaline phosphatase 166, total protein 5.9, and albumin 3.0. IMPRESSION: 1. Acute liver failure secondary to alcohol liver disease. 2. Acute renal failure. 3. Ascites. 4. Jaundice. 5. Thrombocytopenia. 6. Coagulopathy. 7. Anemia. 8. GI bleeding. 9. Severe metabolic encephalopathy. 10. Probable hepatic encephalopathy. RECOMMENDATION: 1. Continue current management. The patient remains on pressors. 2. At some point, he may require an endoscopy to evaluate the dark heme- positive stools. 3. In the interim, I would continue the octreotide drip. 4. Continue Protonix 40 mg IV q.12 hours. 5. Continue Trental 400 mg p.o. t.i.d. 6. Consider the addition of lactulose, either per NG tube or lactulose enemas. I would recheck his ammonia level to assess for elevation. 7. Consider resuming Xifaxan 550 mg p.o. b.i.d. 8. Consider placement of a nasogastric tube to assist in his medications and management of his encephalopathy. 9. Dr. Jonas Pacheco will return in the morning to assume care. cc: MD Jonas Lei MD Reginald D. Gladish, MD MTDD
[2017-02-07] MEDS: DILAUDID IV PRN ×6 (01:59→22:16)
[2017-02-07] MEDS: PROTONIX IV SCH ×2 (06:25→17:55)
[2017-02-07] MEDS: ALBUMIN 25% IV SCH (08:36)
[2017-02-07] MEDS: CENTRUM SILVER PO SCH (08:36)
[2017-02-07] MEDS: ICAR-C PO SCH ×2 (08:37→20:03)
[2017-02-07] MEDS: TRENTAL PO SCH ×3 (08:37→17:04)
[2017-02-07] MEDS: FOLIC ACID PO SCH (08:37)
[2017-02-07] MEDS: VITAMIN B-1 PO SCH (08:37)
[2017-02-07 09:15] LABS: HEMATOCRIT 23.7 % (42.0-52.0); HEMOGLOBIN 8.2 g/dL (14.0-18.0); MCH 32.4 PG (27-31); MCHC 34.6 g/dL (33-37); MCV 93.7 FL (81-99); PLT 77 X1000 (130-400); RBC 2.53 XMIL (4.7-6.1)
[2017-02-07 09:46] LABS: ALBUMIN 2.7 g/dL (3.5-5.0); POTASSIUM 5.2 mmol/L (3.5-5.1); TOTAL PROTEIN 6.1 g/dL (6.3-8.3)
[2017-02-07] MEDS: SANDOSTATIN 500 MICROGM in D5W 100 ML IV SCH (09:47)
[2017-02-07] MEDS: LEVOPHED 8 MG in D5 1/2 NS 250 ML IV SCH ×2 (09:47→17:55)
[2017-02-07 09:48] LABS: TOTAL BILIRUBIN 31.77 mg/dL (0.20-1.00)
[2017-02-07 09:51] LABS: CALCIUM 6.2 mg/dL (8.8-10.2)
--- NOTE | 2017-02-07 09:52 | PROGRESS NOTE ---
DATE: 02/07/2017 SUBJECTIVE: Mr. Bucio is resting in bed. He remains on room air. He does not interact. His eyes are open, mostly somnolent. OBJECTIVE: His most recent vital signs-temperature 97 degrees, blood pressure 98/53, heart rate 55, respirations are 20. He is on room air. Last recorded saturation 95%. He has had 3519 in, he has only had 10 mL out per Alvarado catheter. LABORATORY DATA: This a.m. are still pending with a previous hemoglobin of 8.8 on the and a potassium of 5.1, BUN of 212, and creatinine 14.3, all on the 26th. PHYSICAL EXAM: General: This is a 61-year-old white male. He is currently resting in bed. He is in no acute distress. Skin: Warm and dry. HEENT: Normocephalic, atraumatic. Conjunctiva is icteric. Pupils are equal, but sluggish. Neck: Supple. Trachea midline. No JVD. Cardiovascular: Regular rate and rhythm. He is without murmur or gallop. Lungs: Are clear to auscultation anteriorly. Remains on room air. Abdomen: Distended. Semi- soft. Positive bowel sounds. Genitourinary: Alvarado catheter is in place. No urine out except for dark material in the urometer. Extremities: Have no edema. No clubbing or cyanosis. Integumentary: The patient has jaundice; skin is warm and dry. ASSESSMENT AND PLAN: Acute kidney injury in the context of chronic and acute hepatic failure. Urine output remains low. Creatinine and BUN have continued to stay elevated. There has been a had a detailed discussion with the family and indicating that there is a poor prognosis and that his treatment options are limited. There was a recommendation to withhold dialysis and place patient as a DNR. Family was in agreement. Patient is now on DNR level 2. I would like to thank you for allowing us to follow with this patient. We will sign off and be available as needed. Seen, data reviewed, discussed with Rupa Cavazos on 02/07/17. I agree with the above assessment and plan of care. rg Dictated by MARGARET Romero for Vidal Glaser MD cc: MARGARET Romero MD [facility]
--- NOTE | 2017-02-07 11:03 | PROGRESS NOTE ---
DATE: 02/07/2017 SUBJECTIVE: He is breathing shallow. He is moaning. Abdomen is uncomfortable, markedly distended. OBJECTIVE: VITAL SIGNS: Temp 97 degrees, pulse 55, respirations 21. Blood pressure 98/53. HEENT: Icteric jaundice. LAB: Urine output over 5.5 L. White count 79811, hematocrit 23, platelet count 77,000. Chemistry sodium 139, potassium 5.2, chloride 89, BUN was 213 creatinine 14.4, bilirubin 31, AST 172, ALT 55, alkaline phos 160. Albumin 2.7. Coagulation ProTime 16. ASSESSMENT AND PLAN: 1. Acute kidney injury. 2. Hepatorenal syndrome. 3. Acute on chronic hepatic failure. 4. Fulminant liver failure. PROGNOSIS: Very grim. Son wants to just pursue comfort measures. Do not want to attempt dialysis, and he is a DNR level 2. Note- his calcium is elevated. He has Dilaudid for pain and we will continue comfort measures. He is on Pentoxifylline 400 mg t.i.d., Protonix 40 mg IV q.12, octreotide he is getting at 15 mcg every hour. He is on norepinephrine drip, Icar C1 b.i.d., levofloxacin 500 mg IV q.24 hours. Getting D5 water with bicarbonate at 100 mL an hour. Albumin 25 g IV daily. cc: Fortunato Martino MD
[2017-02-07] MEDS: SODIUM BICARBONATE 8.4% 150 MEQ in D5W 1,000 ML IV SCH ×2 (12:09→22:38)
--- NOTE | 2017-02-07 13:09 | PROGRESS NOTE ---
DATE: 02/07/2017 SUBJECTIVE: Patient is moaning with stimulus. Breathing is shallow. OBJECTIVE: Vital Signs: Temperature 97 degrees, pulse 55, respirations 21, blood pressure 98/53. General: Patient is nonresponsive. HEENT: Scleral jaundice and jaundice of the skin. Abdomen: With ascites and distention. LABORATORY: Hematology: White count 22.62, hemoglobin 8.2, hematocrit 23.7, MCV 93.7. Chemistry: Sodium 139, potassium 5.2, chloride 89, CO2 11, BUN 213, glucose 208. Total bilirubin 31.77, AST 172, ALT 55, alkaline phosphatase 160. ASSESSMENT: 1. Hepatic failure. 2. History of alcohol abuse. 3. Acute kidney injury. PLAN: Continue comfort measure, supportive care. He is a DNR level 2. He has Levophed infusing along with octreotide. Will continue to follow and be available as needed. Dictated by MARGARET Marx for Jonas Pacheco MD cc: MARGARET Hawkins MD
[2017-02-07] MEDS: LEVAQUIN 500 MG/D5W 500 MG/100 ML IVPB IV SCH (14:37)
[2017-02-07] MEDS: SODIUM CHLORIDE 0.9% INJ SCH (17:55)
[2017-02-08] MEDS: LEVOPHED 8 MG in D5 1/2 NS 250 ML IV SCH ×3 (00:15→21:10)
[2017-02-08] MEDS: DILAUDID IV PRN ×4 (01:15→23:18)
[2017-02-08] MEDS: SODIUM CHLORIDE 0.9% INJ SCH ×2 (05:46→17:13)
[2017-02-08] MEDS: PROTONIX IV SCH ×2 (05:46→17:13)
[2017-02-08] MEDS: SANDOSTATIN 500 MICROGM in D5W 100 ML IV SCH (05:47)
[2017-02-08 07:09] LABS: ALBUMIN 2.4 g/dL (3.5-5.0); TOTAL PROTEIN 6.1 g/dL (6.3-8.3)
[2017-02-08 07:47] LABS: TOTAL BILIRUBIN 30.16 mg/dL (0.20-1.00)
[2017-02-08 07:48] LABS: POTASSIUM 6.4 mmol/L (3.5-5.1)
[2017-02-08 07:49] LABS: CALCIUM 5.6 mg/dL (8.8-10.2)
[2017-02-08 08:12] LABS: HEMATOCRIT 23.7 % (42.0-52.0); MCH 33.1 PG (27-31); MCHC 33.8 g/dL (33-37); MCV 97.9 FL (81-99); PLT 62 X1000 (130-400); RBC 2.42 XMIL (4.7-6.1)
[2017-02-08] MEDS ORDERED: KAYEXALATE PO ONE (08:36)
[2017-02-08] MEDS ORDERED: HUMULIN R SUBQ ONE (08:36)
[2017-02-08] MEDS ORDERED: D50W SYRINGE IV ONE (08:37)
[2017-02-08] MEDS ORDERED: CALCIUM GLUCONATE IV PUSH ONE ×2 (08:38→16:15)
[2017-02-08] MEDS ORDERED: KAYEXALATE PR ONE (08:53)
[2017-02-08] MEDS: ALBUMIN 25% IV SCH (09:09)
[2017-02-08] MEDS: ICAR-C PO SCH ×2 (09:37→23:20)
[2017-02-08] MEDS: FOLIC ACID PO SCH (09:37)
[2017-02-08] MEDS: VITAMIN B-1 PO SCH (09:37)
[2017-02-08] MEDS: CENTRUM SILVER PO SCH (09:37)
[2017-02-08] MEDS: TRENTAL PO SCH ×4 (09:38→16:12)
[2017-02-08] MEDS: ALBUTEROL 0.5% INH CONC FOR HYPERKALEMIA INH ONE ×2 (09:53→10:26)
[2017-02-08] MEDS: SODIUM BICARBONATE 8.4% 150 MEQ in D5W 1,000 ML IV SCH (10:09)
--- NOTE | 2017-02-08 12:06 | PROGRESS NOTE ---
DATE: 02/08/2017 SUBJECTIVE: Today, Mr. Bucio continues to be extremely critical. I spoke with the attending nurse who was able to get in touch with the son who lives in [place] and is hoping to come down by Monday. My understanding is that the son does not want any intubation or CPR and wants us to keep the Levophed going if needed in order to give him some time to come and see his dad. OBJECTIVE: Vital Signs: Blood pressure is 93/57, pulse is 58, respiration is 12 , temperature is 98.9 degrees. General: Mr. Bucio is a 61-year-old male. He is in bed , seems in mild distress. Mucosa is pink. Completely icteric; about 4+ icteric. Neck is supple. Chest: Air entry is bilaterally reduced. There is bilateral posterior crepitations. Cardiovascular: Regular rate and rhythm. Abdomen is soft and is distended. There is fluid shift. Extremities: No pedal edema. C T TECH: Patient is obtunded, only grimaces and shouts to painful stimulation. He has some tonic deviation of the eyes to the left but they are easily reverse to look at other places on painful stimulation. LABORATORY DATA: WBC is 23.01, hemoglobin is 8.0, platelet count of 67,000. Sodium is 132, potassium is 6.4, chloride is 82. Bicarb is 11 with a gap of 39. Creatinine is 14.7. The ascitic fluid SAAG is more than 1.1 which is consistent with portal hypertension. ASSESSMENT: 1. Altered mental status, likely secondary to underlying hepatic failure. 2. Ghqkt-oz-tlhsnur alcohol-induced hepatic failure. 3. Cirrhosis of the liver, complicated with ascites, encephalopathy, and renal failure. 4. Acute renal injury in the setting of liver failure suspicious for hepatorenal /acute tubular necrosis. There has been a discussion with the family members. They do not want to do any dialysis. Patient is been evaluated by Nephrology as well. 5. Severe metabolic acidosis with gap. We think this is due to the underlying liver injury as well as the kidney failure. Patient is currently on IV bicarb drip. 6. Electrolyte abnormality including severe hyperkalemia. We will dress this with insulin, dextrose, and also calcium gluconate and Kayexalate. In general, I think Mr. Bucio continues to be extremely critical with very poor prognosis. We will continue with the current therapy including antibiotics, pressor, and add fluid with bicarb drip and vitamins. Patient is being seen by Nephrology and GI. He continues to be DNR LEVEL 2. CRITICAL TIME SPENT: 45 minutes. cc: Sunil Varma MD MTDD
[2017-02-08 16:12] LABS: POTASSIUM 4.9 mmol/L (3.5-5.1)
[2017-02-08 16:16] LABS: CALCIUM 5.4 mg/dL (8.8-10.2)
[2017-02-08] MEDS ORDERED: CALCIUM GLUCONATE 2 GM in NS 100 ML IV ONE (17:00)
[2017-02-09] MEDS: SODIUM BICARBONATE 8.4% 150 MEQ in D5W 1,000 ML IV SCH ×2 (01:58→15:09)
[2017-02-09] MEDS: SANDOSTATIN 500 MICROGM in D5W 100 ML IV SCH ×2 (01:59→21:03)
[2017-02-09] MEDS: LEVOPHED 8 MG in D5 1/2 NS 250 ML IV SCH ×4 (04:00→21:20)
[2017-02-09] MEDS: DILAUDID IV PRN (04:03)
[2017-02-09 06:02] LABS: POTASSIUM 4.7 mmol/L (3.5-5.1)
[2017-02-09 06:03] LABS: ALBUMIN 2.7 g/dL (3.5-5.0); TOTAL PROTEIN 5.8 g/dL (6.3-8.3)
[2017-02-09 06:10] LABS: CALCIUM 5.6 mg/dL (8.8-10.2)
[2017-02-09] MEDS: PROTONIX IV SCH ×2 (06:14→18:43)
[2017-02-09 06:18] LABS: TOTAL BILIRUBIN 29.6 mg/dL (0.20-1.00)
[2017-02-09 06:24] LABS: HEMATOCRIT 22.3 % (42.0-52.0); HEMOGLOBIN 7.7 g/dL (14.0-18.0); MCH 32.9 PG (27-31); MCHC 34.5 g/dL (33-37); MCV 95.3 FL (81-99); PLT 60 X1000 (130-400); RBC 2.34 XMIL (4.7-6.1)
[2017-02-09 07:47] LABS: BANDS 12 % (0-1); LYMPHS 2 % (21-51); MONO 6 % (1-9)
[2017-02-09] MEDS: ALBUMIN 25% IV SCH (08:23)
[2017-02-09] MEDS: CENTRUM SILVER PO SCH (09:50)
[2017-02-09] MEDS: FOLIC ACID PO SCH (09:51)
[2017-02-09] MEDS: ICAR-C PO SCH ×3 (09:51→21:24)
[2017-02-09] MEDS: VITAMIN B-1 PO SCH (09:51)
[2017-02-09] MEDS: TRENTAL PO SCH ×3 (09:52→16:46)
[2017-02-09] MEDS ORDERED: VANCOMYCIN IV PER PHARMACY MISC SCH (10:30)
--- NOTE | 2017-02-09 10:51 | PROGRESS NOTE ---
DATE: 02/09/2017 SUBJECTIVE: Today Mr. Bucio looks a lot worse than yesterday. He is minimally responsive. Per the nursing staff, his night was uneventful. OBJECTIVE: Vital signs: Blood pressure is 106/69, pulse of 80, respirations 16, temperature 97.8 degrees. Patient is saturating 95% on room air. General Examination: Mr. Bucio is a 61-year-old male. He is in bed. Does not seem to be in any remarkable distress. HEENT: Mucosa is pink, but extremely icteric. Chest: Air entry is bilaterally reduced. There is some few bibasilar crepitations. Cardiovascular: Regular rate and rhythm. Abdomen: Soft, distended. Positive for fluid shift. Extremities: No pedal edema. PIT INSPECTOR: Patient is completely stuporous. Would only grimace to painful stimuli. Does not respond to verbal stimulation. Has spontaneous eye opening. Seems to have a tonic deviation of the eyes to the left, but will normalize once you stimulate him. The patient also has bilateral lower extremity Babinski. LABORATORY DATA: WBC is up to 31.11, hemoglobin is 7.7, platelet count is 60,000. There is 12% bands on the peripheral smear. Sodium is 134, potassium is 4.7, chloride is 81, bicarb is creatinine is 16.4. AST is slightly down to 139. ALT is slightly down to 52. BUN is 209. CURRENT MEDICATIONS: 1. Albumin. 2. Folic acid 1 mg b.i.d. daily. 3. Haldol p.r.n. 4. Morphine p.r.n. 5. Levofloxacin 250 q.48 hourly. 6. Trental. 7. Vitamin D. 8. Sodium bicarb IV fluids at 100 mL/h. ASSESSMENT: 1. Altered mental status secondary to toxic metabolic encephalopathy. 2. Hepatic encephalopathy with possible uremic encephalopathy. 3. Acute on chronic alcohol induced hepatic failure. 4. Cirrhosis of the liver complicated with ascites, encephalopathy, and renal failure. 5. Acute renal failure in the setting of liver failure, suspicious for hepatocellular syndrome versus acute tubular necrosis. 6. Severe metabolic acidosis with a gap. Patient is currently on bicarb drip. 7. Hyperkalemia, improved. 8. Worsening leukocytosis with band. Patient is currently on levofloxacin. We will add both Zosyn and vancomycin to broaden the spectrum. Will put an NG tube on the patient and start him on lactulose to see if we can improve his mentation. Patient continues to be DNR Level 1. Will only continue with the Levophed, but no intubation, no CPR. Mr. Bucio's condition continues to be extremely critical and it seems to be gradually worsening. CRITICAL TIME SPENT: Forty-five minutes. cc: Sunil Varma MD
--- NOTE | 2017-02-09 10:58 | Diag Imaging Result Doc PS360 ---
CHEST/ABD TUBE PLACEMENT - 02/09/2017 INDICATION: NGT placement TECHNIQUE: COMPARISON: 02/05/2017 FINDINGS: There is a nasogastric tube with the tip in the stomach. Otherwise no changes. IMPRESSION: Nasogastric tube with the tip in the stomach. Electronically signed by Jimmy Kuo 02/09/2017 10:55 AM
[2017-02-09] MEDS ORDERED: VANCOMYCIN 1 GM/NS 1 GM/250 ML IVPB IV ONE (11:00)
[2017-02-09] MEDS: LACTULOSE PO SCH ×2 (11:08→21:24)
[2017-02-09] MEDS: MAXIPIME 0.5 GM in NS 50 ML IV SCH ×2 (11:54→23:30)
[2017-02-09] MEDS: LEVAQUIN 250 MG/D5W 250 MG/50 ML IVPB IV SCH (15:27)
[2017-02-09] MEDS: SODIUM CHLORIDE 0.9% INJ SCH (18:43)
[2017-02-10] MEDS: LEVOPHED 8 MG in D5 1/2 NS 250 ML IV SCH ×5 (01:56→21:26)
[2017-02-10] MEDS: SODIUM BICARBONATE 8.4% 150 MEQ in D5W 1,000 ML IV SCH ×3 (04:41→18:41)
[2017-02-10] MEDS: PROTONIX IV SCH ×2 (05:06→18:44)
[2017-02-10 06:20] LABS: INR 1.83
[2017-02-10 07:14] LABS: ALBUMIN 2.6 g/dL (3.5-5.0); POTASSIUM 5.7 mmol/L (3.5-5.1); TOTAL PROTEIN 5.8 g/dL (6.3-8.3)
[2017-02-10 07:17] LABS: TOTAL BILIRUBIN 29.02 mg/dL (0.20-1.00)
[2017-02-10 07:52] LABS: CALCIUM 5.1 mg/dL (8.8-10.2)
[2017-02-10] MEDS ORDERED: CALCIUM GLUCONATE 2 GM in NS 100 ML IV ONE (08:26)
[2017-02-10] MEDS: LACTULOSE PO SCH ×2 (08:36→21:34)
[2017-02-10] MEDS: ALBUMIN 25% IV SCH (08:36)
[2017-02-10] MEDS: FOLIC ACID PO SCH (08:37)
[2017-02-10] MEDS: CENTRUM SILVER PO SCH (08:37)
[2017-02-10] MEDS: VITAMIN B-1 PO SCH (08:37)
[2017-02-10] MEDS: DILAUDID IV PRN ×4 (08:37→18:45)
[2017-02-10] MEDS: ICAR-C PO SCH ×2 (08:37→21:34)
[2017-02-10] MEDS: TRENTAL PO SCH ×3 (08:39→16:24)
[2017-02-10] MEDS: MAXIPIME 0.5 GM in NS 50 ML IV SCH ×2 (11:22→21:34)
--- NOTE | 2017-02-10 11:29 | PROGRESS NOTE ---
DATE: 02/10/2017 SUBJECTIVE: Today Mr. Bucio continues to be critical sick, minimally responsive. OBJECTIVE: Vital signs: Blood pressure 97/59, pulse of 62, respirations 17, temperature 97.4 degrees. General: Mr. Bucio is a 61-year-old male. He is in bed, mild respiratory distress. He looks extremely jaundiced. HEENT: Mucosa is pink, 4+ icterus. Neck: Supple. Positive JVD. Chest: Air entry is bilaterally reduced. There are bilateral crepitations. Cardiovascular: Regular rate and rhythm. Abdomen: Distended with positive fluid shift. Extremities: No pedal edema. DIFFUSER OPERATOR: Patient is stuporous. Will only grimace to painful stimulation. Pupils, however, are active and reactive to light. Both eyes are tonically deviated to the left. LABORATORY DATA: INR is 1.83. Sodium is 133, potassium 5.7, chloride 76, bicarb is 19, gap of 37, creatinine is 15.5. ASSESSMENT: 1. Altered mental status secondary to toxic metabolic encephalopathy. 2. Hepatic encephalopathy with possible uremic encephalopathy. 3. Acute on chronic alcohol-induced hepatic failure. 4. Cirrhosis of the liver complicated with ascites, encephalopathy, and renal failure. 5. Acute renal failure in the setting of liver failure, suspicious for hepatorenal syndrome/acute tubular necrosis. 6. Severe high gap metabolic acidosis. 7. Leukocytosis with bandemia, suspicious for possible underlying infection. Patient is currently on both cefepime, vancomycin, and levofloxacin. PLAN: So in general, Mr. Bucio continues to be critically sick. I think he is actually showing signs of nearing end of life. We are still waiting for the son, who is apparently coming from [place], for other decisions to be made. I spoke extensively with the sister and the mother yesterday and both of them where with the impression of wanting to discontinue care and keep him comfort care only. However, they are also waiting on the son to come and see him before they make that decision. cc: Sunil Varma MD
[2017-02-10] MEDS: SANDOSTATIN 500 MICROGM in D5W 100 ML IV SCH (16:29)
[2017-02-10] MEDS: SODIUM CHLORIDE 0.9% INJ SCH (18:44)
[2017-02-11] MEDS: LEVOPHED 8 MG in D5 1/2 NS 250 ML IV SCH ×5 (01:44→21:35)
[2017-02-11] MEDS: DILAUDID IV PRN ×3 (03:46→15:01)
[2017-02-11] MEDS: SODIUM BICARBONATE 8.4% 150 MEQ in D5W 1,000 ML IV SCH ×3 (03:49→19:03)
[2017-02-11] MEDS: SODIUM CHLORIDE 0.9% INJ SCH (05:13)
[2017-02-11] MEDS: PROTONIX IV SCH ×2 (05:13→18:27)
[2017-02-11 07:45] LABS: INR 1.77; PROTIME 19.3 Seconds (9.2-11.7)
[2017-02-11 08:03] LABS: TOTAL PROTEIN 6.1 g/dL (6.3-8.3)
[2017-02-11 08:17] LABS: TOTAL BILIRUBIN 29.54 mg/dL (0.20-1.00)
[2017-02-11 08:19] LABS: CALCIUM 5.2 mg/dL (8.8-10.2)
[2017-02-11] MEDS: VITAMIN B-1 PO SCH (09:08)
[2017-02-11] MEDS: ICAR-C PO SCH ×2 (09:08→21:49)
[2017-02-11] MEDS: TRENTAL PO SCH ×3 (09:08→16:54)
[2017-02-11] MEDS: FOLIC ACID PO SCH (09:08)
[2017-02-11] MEDS: CENTRUM SILVER PO SCH (09:08)
[2017-02-11] MEDS: LACTULOSE PO SCH ×2 (09:58→21:49)
[2017-02-11] MEDS: MAXIPIME 0.5 GM in NS 50 ML IV SCH ×2 (09:59→21:49)
--- NOTE | 2017-02-11 11:35 | PROGRESS NOTE ---
DATE: 02/11/2017 SUBJECTIVE: Today, Mr. Bucio continues to be critically sick and we are still waiting on his son to come from [place]. I understand it is now going to be tomorrow. OBJECTIVE: Vital Signs: Blood pressure is 102/58, pulse is 65, respirations 12 , temperature 98.7 degrees. General: Mr. Bucio is a 61-year-old male. He is in bed and seems to be in some respiratory distress. HEENT: Mucosa is pink, extremely jaundiced. Chest : Air entry is bilaterally reduced. There are some crepitations in the posterior lung jaime. Cardiovascular: Regular rate and rhythm. Abdomen: Distended. There is a positive fluid shift. Extremities: No pedal edema. Central Nervous System: Patient continues to be stuporous and unresponsive to verbal. Will only move sluggishly the extremities to painful stimulation. Pupils are reactive to light. The patient also has bilateral lower extremity Babinski. LABORATORY DATA: Chemistry: Sodium is 135, potassium is 5.0, chloride is 76, bicarbonate is 21, gap of 28. Creatinine is 14.7. AST is 145, AST is 52. Alkaline phosphatase is 205 and progressively worsening. I's and O's show only 38 urine output documented for today. ASSESSMENT: 1. Altered mental status secondary to toxic metabolic encephalopathy. 2. Hepatic and uremic encephalopathy. 3. Acute on chronic alcohol-induced hepatic failure. 4. Cirrhosis of the liver complicated with ascites, encephalopathy, thrombocytopenia, and renal failure. 5. Acute renal failure in the setting of liver failure suspicious for hepatorenal syndrome with possible superimposed acute tubular necrosis. 6. Severe high gap metabolic acidosis. 7. Leukocytosis with bandemia, suspicious for underlying infection. Patient is currently on broad-spectrum antibiotics. 8. Poor prognosis. DNR Level 2 In general, Mr. Bucio's condition continues to be extremely critical with very guarded and poor prognosis. We are still waiting on the son to come for further decisions to be made. For now, we are going to continue with the current care, including antibiotic, pressors, and IV fluids. The patient's family members do not want him to be intubated and they do not want any dialysis. cc: Sunil Varma MD MTDD
[2017-02-11] MEDS: SANDOSTATIN 500 MICROGM in D5W 100 ML IV SCH (12:49)
[2017-02-11] MEDS: ATIVAN IV PRN ×2 (13:12→16:54)
[2017-02-11] MEDS: LEVAQUIN 250 MG/D5W 250 MG/50 ML IVPB IV SCH (14:55)
[2017-02-12] MEDS: ATIVAN IV PRN ×3 (01:45→11:32)
[2017-02-12] MEDS: LEVOPHED 8 MG in D5 1/2 NS 250 ML IV SCH ×4 (02:55→18:34)
[2017-02-12] MEDS: SANDOSTATIN 500 MICROGM in D5W 100 ML IV SCH ×2 (07:22→19:30)
[2017-02-12] MEDS: SODIUM BICARBONATE 8.4% 150 MEQ in D5W 1,000 ML IV SCH ×2 (07:28→18:35)
[2017-02-12 07:32] LABS: INR 1.78; PROTIME 19.4 Seconds (9.2-11.7)
[2017-02-12 07:35] LABS: BASO% 0.6 % (0.0-0.8); EOS# 0.12 X1000 (0.0-0.7); EOS% 0.3 % (0.0-10.0); HEMATOCRIT 21.7 % (42.0-52.0); HEMOGLOBIN 7.6 g/dL (14.0-18.0); IMM GRAN# 0.76 X1000 (0.0-0.04); IMM GRAN% 2.1 % (0.0-0.5); LYMPH# 1.46 X1000 (1.2-3.4); MANUAL DIFF NEEDED? YES; MCH 32.3 PG (27-31); MCV 92.3 FL (81-99); MONO% 10.9 % (1.7-9.3); NEUT% 82.1 % (42.2-75.2); PLT 89 X1000 (130-400); RBC 2.35 XMIL (4.7-6.1)
[2017-02-12 07:46] LABS: BANDS 6 % (0-1); LYMPHS 4 % (21-51); MONO 8 % (1-9)
[2017-02-12] MEDS: PROTONIX IV SCH ×2 (07:48→20:25)
[2017-02-12 08:06] LABS: POTASSIUM 5.3 mmol/L (3.5-5.1)
[2017-02-12 08:22] LABS: CALCIUM 5.2 mg/dL (8.8-10.2)
[2017-02-12] MEDS: VITAMIN B-1 PO SCH (08:56)
[2017-02-12] MEDS: FOLIC ACID PO SCH (08:56)
[2017-02-12] MEDS: ICAR-C PO SCH ×2 (08:57→20:25)
[2017-02-12] MEDS: LACTULOSE PO SCH ×2 (08:57→20:25)
[2017-02-12] MEDS: CENTRUM SILVER PO SCH (08:57)
[2017-02-12] MEDS: TRENTAL PO SCH ×3 (08:57→17:17)
[2017-02-12] MEDS: DILAUDID IV PRN ×3 (10:04→21:14)
[2017-02-12] MEDS: MAXIPIME 0.5 GM in NS 50 ML IV SCH ×2 (10:09→23:17)
--- NOTE | 2017-02-12 11:13 | PROGRESS NOTE ---
DATE: 02/12/2017 SUBJECTIVE: Today Mr. Bucio continues to be extremely critical. I understand the son is still en route from [place]. OBJECTIVE: Vital signs: Blood pressure is 93/52, maxed up on Levophed. Pulse is 63, respiration is 19, temperature 97.8 degrees. General: Mr. Bucio is a 61-year-old male. He is in bed, seems to be in some respiratory distress. HEENT: Mucosa is pink. Extremely jaundiced. Neck: Supple. Chest: Air entry is bilaterally reduced. Cardiovascular: Regular rate and rhythm. Abdomen: Distended. Positive fluid shift. Extremities: No pedal edema but there is some fluid infiltration up into the thigh. COOK FISH AND CHIPS: Patient is more stuporous than yesterday. Barely grimaces to painful stimulation. Has bilateral Babinski. Pupils are pinpoint and sluggishly reactive. LABORATORY DATA: WBC is up to 36.64, hemoglobin is 7.6, platelet count of 89, 000. Chemistries reviewed. Sodium is 129, potassium is 5.3, BUN is up to 206, creatinine is 15.7. Urine output was 0 yesterday. ASSESSMENT: 1. Stuporous/comatose secondary to toxic metabolic encephalopathy. 2. Severe hepatic and uremic encephalopathy. 3. Acute on chronic alcohol induced hepatic failure. 4. Cirrhosis of the liver complicated with ascites, encephalopathy, thrombocytopenia, and renal failure. 5. Acute renal failure in the setting of liver failure, suspicious for hepatorenal syndrome with possible superimposed acute tubular necrosis. 6. Severe gap acidosis due to liver and kidney failure. 7. Leukocytosis with bandemia. The patient continues to be on IV broad- spectrum antibiotics. 8. Poor prognosis and Do Not Resuscitate level 2. PLAN: In general, today Mr. Bucio continues to show remarkable deterioration in his mental status. He is now responding less. His perfusion in the lower extremities seems to be compromised. He is now mottling. I think Mr. Bucio is gradually showing signs of decompensation and near end of life. We are going to continue with the current care as per family wishes and we are still waiting on the son to come from [place] to see if there is any further decision that he would want to take. cc: Sunil Varma MD [facility]
[2017-02-13] MEDS: ATIVAN IV PRN (01:33)
[2017-02-13] MEDS: LEVOPHED 8 MG in D5 1/2 NS 250 ML IV SCH ×2 (04:34→11:13)
[2017-02-13] MEDS: SANDOSTATIN 500 MICROGM in D5W 100 ML IV SCH (04:53)
[2017-02-13] MEDS ORDERED: VASELINE TOP PRN (05:03)
[2017-02-13] MEDS: DILAUDID IV PRN ×4 (05:30→20:05)
[2017-02-13] MEDS: SODIUM BICARBONATE 8.4% 150 MEQ in D5W 1,000 ML IV SCH (05:30)
[2017-02-13] MEDS: SODIUM CHLORIDE 0.9% INJ SCH (05:31)
[2017-02-13] MEDS: PROTONIX IV SCH (05:31)
[2017-02-13 07:30] LABS: INR 1.8; PROTIME 19.6 Seconds (9.2-11.7)
[2017-02-13] MEDS: ICAR-C PO SCH (08:59)
[2017-02-13] MEDS: LACTULOSE PO SCH (08:59)
[2017-02-13] MEDS: TRENTAL PO SCH ×2 (08:59→13:43)
[2017-02-13] MEDS: VITAMIN B-1 PO SCH (08:59)
[2017-02-13] MEDS: FOLIC ACID PO SCH (08:59)
[2017-02-13] MEDS: CENTRUM SILVER PO SCH (08:59)
[2017-02-13] MEDS: MAXIPIME 0.5 GM in NS 50 ML IV SCH (11:00)
[2017-02-13] MEDS: LEVAQUIN 250 MG/D5W 250 MG/50 ML IVPB IV SCH (13:43)
--- NOTE | 2017-02-13 13:43 | PROGRESS NOTE ---
DATE: 02/13/2017 SUBJECTIVE: Today Mr. Bucio continues to be critically sick. The nurses were changing and giving him a bath at the time I went for the interview. I understand the son has come from [place] and visited him yesterday and wants to have a conversation with me. I am waiting for him to come. OBJECTIVE: Vitals: Blood pressure is 82/50, pulse is 59, respirations 18, temperature is 96.9 degrees. General: Physical exam is unchanged from yesterday. Patient continues to be completely obtunded, not communicating. Neurologic: Pupils are pinpoint and sluggishly reactive. Maintains bilateral Babinski. Will grimace to painful stimulation. LABORATORY DATA: No lab work for today. ASSESSMENT: 1. Stuporous/comatose secondary to toxic metabolic encephalopathy grade III to IV. 2. Severe hepatic and uremic encephalopathy with MELD score 39 associated with low sodium. 3. Acute on chronic alcohol-induced hepatic failure. 4. Cirrhosis of the liver complicated with ascites, encephalopathy, thrombocytopenia, and renal failure. 5. Acute renal failure in the setting of liver failure suspicious for hepatorenal syndrome with possible superimposed acute tubular necrosis. 6. Severe metabolic gap acidosis due to liver and kidney failure. 7. Leukocytosis with bandemia. 8. Poor prognosis. 9. Do Not Resuscitate level 2. PLAN: Mr. Bucio continues to be extremely sick. We are waiting on the son who has come from [place] for us to have some conversation today and know what is going to be the wishes going forward. cc: Sunil Varma MD MTDD
[2017-02-13] MEDS ORDERED: ATIVAN IV PRN (14:40)
--- NOTE | 2017-02-13 16:02 | PROGRESS NOTE ---
DATE: 02/13/2017 SUBJECTIVE: Mr. Bucio to be completely altered and hepatic encephalopathy grade 4. The whole family was at the room this afternoon including the mother and a son who came from [place], a daughter and 2 other family members. At this time they all agree to make Mr. Bucio comfortable because they think he is suffering. They do not want any more labs, they do not want anymore imaging studies and no other medication except to keep him comfortable. ASSESSMENT/PLAN: We will therefore discontinue all medications and only use hydromorphone and lorazepam to keep him comfortable. Put him on oxygen if needed and observe him here in the ICU. I think he might pass pretty soon but if after 4-6 hours he is still around, we will transfer him from the ICU to regular floor in a private room. We will therefore discontinue the NG tube and change his DNR status to level 1 and MACHINIST CLASS B which is comfort measures only. cc: Sunil Varma MD
[2017-02-14] MEDS: DILAUDID IV PRN ×3 (03:25→13:19)
[2017-02-14 12:04] VITALS: BP 65/38
--- NOTE | 2017-03-11 21:40 | DISCHARGE SUMMARY ---
ADMISSION DATE: 02/04/2017 DISCHARGE DATE: 02/14/2017 DISCHARGE DIAGNOSES: 1. Hepatorenal syndrome. 2. End-stage liver disease. 3. Hepatic encephalopathy grade 4. 4. Uremic encephalopathy. 5. Acute on chronic alcohol induced hepatic failure. 6. Acute kidney failure. PROCEDURES: Paracentesis done on the . CONSULTATION: 1. Dr. Glaser, renal. 2. Dr. Garcia, GI. HOSPITAL COURSE: Briefly this is a 61-year-old gentleman with known hypertension and lung cancer, cirrhosis, diabetes, who came in with jaundice. Had significant alcohol use up until about 2 weeks prior to admission. He was admitted with hypercapnia, acidosis. He was placed on IV fluids. His initial BUN and creatinine were 217 and a creatinine of 15.7. His abdominal ultrasound showed severe fatty liver, hepatosplenomegaly, small ascites. His CT scan showed cirrhosis with splenomegaly, healing rib fractures. Dr. Glaser saw the patient recommended hydration. He was at risk for hepatorenal syndrome. He was placed on albumin. Dr. Garcia saw the patient and made clinical recommendations over his concern over delirium tremens but reportedly had not had any alcohol in 2 weeks. His course was sg initially. He had to be placed on pressors. He did have some improvement in his kidney dysfunction. He had a paracentesis done with he was placed on a bicarbonate drip. He was maintained on Levophed. Despite this his mental status was not great. He did have heme-positive stools. He was placed on octreotide. He had been on Protonix. He had been on Trental, lactulose and Xifaxan. His ammonia level 4768 but he had persistent confusion. He did not improve. His son only wanted to pursue comfort measures. That was by the . They did not want dialysis. He was made a DNR level 2 and then 1. He was placed on lactulose via an NG tube but despite these measures he continued to clinically deteriorate. On the and his family decided to make him comfort care. He was kept in the ICU and he on the at 1359. Family was at bedside. cc: MD Manny Delacruz MD
== END 2017-02-14 13:59 | disposition expired ==
LOC: P.ED 14:16 → ICU 16:25 → SUATTDRO 16:25 → ICU 17:50
PROVIDERS: ATTEND Internal Medicine